=== PATIENT | female | born 1940 | race Caucasian/White ===

== ENCOUNTER 2022-07-18 08:58 | Day surgery (SDC) | payer MEDICARE, BC ==
[2022-07-18] MEDS ORDERED: Sodium Chloride 0.9% 10 ML Syringe IV ONE (08:59)
[2022-07-18] MEDS ORDERED: fentaNYL 100 MCG/2 ML SDV IV ONE (08:59)
[2022-07-18] MEDS ORDERED: Midazolam 1 MG/ML 2 ML SDV IV ONE (08:59)
[2022-07-18] MEDS ORDERED: Sodium Chloride 0.9% 10 ML Syringe FLUSH PRN (09:30)
[2022-07-18] MEDS ORDERED: Lactated Ringers 1,000 ML IV PRN (09:30)
[2022-07-18] MEDS ORDERED: acetaZOLAMIDE 500 MG Cap.ER PO ONE (11:30)
== END 2022-07-18 11:20 | disposition home or self-care (01) ==
LOC: FB.SDS 08:58
PROVIDERS: ATTEND Ophthalmology
DX: H25.813 Combined forms of age-related cataract, bilateral (principal); H43.813 Vitreous degeneration, bilateral; H52.13 Myopia, bilateral; J43.8 Other emphysema; I12.9 Hypertensive chronic kidney disease with stage 1 through stage 4 chronic kidney disease, or unspecified chronic kidney disease; N18.31 Chronic kidney disease, stage 3a; F17.210 Nicotine dependence, cigarettes, uncomplicated; Z79.899 Other long term (current) drug therapy; Z88.0 Allergy status to penicillin; Z91.012 Allergy to eggs; Z98.890 Other specified postprocedural states; Z90.710 Acquired absence of both cervix and uterus
CPT/HCPCS: 00142-QZ; A9270-GY; J2250; J3010; J3490; V2632

== ENCOUNTER → 2022-08-01 | Day surgery (SDC) | payer MEDICARE, BC ==
[~2022-08-01] MED LIST: Lactated Ringers 1,000 ML IV PRN; Midazolam 1 MG/ML 2 ML SDV IV ONE; Sodium Chloride 0.9% 10 ML Syringe IV ONE; acetaZOLAMIDE 500 MG Cap.ER PO ONE; fentaNYL 100 MCG/2 ML SDV IV ONE
== END ==
LOC: FB.SDS 06:00
PROVIDERS: ATTEND Ophthalmology
DX: H25.813 Combined forms of age-related cataract, bilateral (principal); H43.813 Vitreous degeneration, bilateral; H52.13 Myopia, bilateral; N18.31 Chronic kidney disease, stage 3a; J43.9 Emphysema, unspecified; I12.9 Hypertensive chronic kidney disease with stage 1 through stage 4 chronic kidney disease, or unspecified chronic kidney disease; F17.210 Nicotine dependence, cigarettes, uncomplicated; M79.89 Other specified soft tissue disorders; Z85.3 Personal history of malignant neoplasm of breast; Z90.11 Acquired absence of right breast and nipple; Z98.890 Other specified postprocedural states; Z79.899 Other long term (current) drug therapy; Z88.0 Allergy status to penicillin; Z91.012 Allergy to eggs
CPT/HCPCS: 00142-QZ; A9270-GY; J2250; J3010; J3490